=== PATIENT | female | born 1970 | race Two or more races ===

== ENCOUNTER → 2024-12-12 | Outpatient (CLI) | payer BC, SELFPAY ==
[2024-12-12 16:52] LABS: Calcium, Ionized 4.8 mg/dL (4.6-5.6)
[2024-12-12 16:55] LABS: Glucose Estimated Average 97 mg/dL (80-131)
[2024-12-12 17:03] LABS: Parathyroid Hormone Intact 41.6 pg/ml (18.5-88.0)
[2024-12-12 17:08] LABS: Albumin, Serum 4.5 gm/dL (3.5-5.0); Anion Gap 5 (7-16); BUN/Creatinine Ratio 25 Ratio (12-20); Blood Urea Nitrogen 15 mg/dL (9-23); Calcium 9.4 mg/dL (8.3-10.6); Calcium (Corrected) 9.4 mg/dL (8.5-10.1); Carbon Dioxide 29.6 mMol/L (20.0-31.0); Cardiac Risk Estimate 2.9 RATIO (3.7-5.6); Chloride 106 mMol/L (98-107); Cholesterol 249 mg/dL (132-200); Creatinine (Component) 0.6 mg/dL (0.6-1.3); Free T3 3.3 pg/mL (2.3-4.2); Glucose 74 mg/dL (74-106); HDL Cholesterol 85 mg/dL (40-60); LDL Cholesterol,Calculated 144 mg/dL (0-130); Osmolality,Calculated 281 (275-295); Phosphorous 3.6 mg/dL (2.4-5.1); Potassium 4.3 mMol/L (3.4-5.1); Sodium 141 mMol/L (136-145); Triglycerides 101 mg/dL (30-150); eGFR > 60 See Note
[2024-12-22 07:06] LABS: Vitamin D, 25-OH, D2 <4 ng/mL; Vitamin D, 25-OH, D3 51 ng/mL; Vitamin D, 25-OH, Total 51 ng/mL (30-100)
== END | disposition home or self-care (01) ==
LOC: COPL 15:39
PROVIDERS: PCP Specialist; Referring Provider Specialist; Visit Provider Specialist
DX: R63.5 Abnormal weight gain (principal); E78.2 Mixed hyperlipidemia; M81.0 Age-related osteoporosis without current pathological fracture
CPT/HCPCS: 36415; 80061; 80069; 82306; 82330; 83036; 83970; 84439; 84443; 84481

== ENCOUNTER → 2025-01-14 | Outpatient (CLI) | payer BC, SELFPAY ==
[2025-01-14 09:34] LABS: HCG Qualitative,Urine Negative
--- NOTE | 2025-01-14 10:30 | XR_ITS ---
Examination: CT soft tissue neck, with intravenous contrast. 2-D coronal reconstructions. 2-D sagittal reconstructions. Date and time of exam :January 14, 2025 1029 hrs. Indications: Palpable lump left side of the neck 6 months, history thyroid cyst, cystic mass of February 2023 22 x [address] soft tissue neck 06/13/2023. CTDI: vol (mGy):9.70 DLP: (mGycm):272 Technique: 1.25 mm axial sections of the neck of the obtained. Coronal and sagittal reconstructions have been obtained. Intravenous contrast administered 50 cc Isovue-[id number]. Low dose protocols were performed. One or more of the following dose reduction techniques were used; automated exposure control, adjustment of the mA and/or KV according to patient size, use of iterative reconstruction technique. Findings: Optic globes exhibit symmetry Maxillary antra are clear Symmetrical nasopharynx oropharynx Nonspecific carotid triangle posterior cervical submental lymph nodes The larynx appears normal The submental cystic mass is no longer identified Normal epiglottis Impression: The submental cystic mass is no longer identified
== END | disposition home or self-care (01) ==
PROVIDERS: PCP Specialist; Referring Provider Specialist; Visit Provider Specialist
DX: R22.1 Localized swelling, mass and lump, neck (principal); Z32.00 Encounter for pregnancy test, result unknown
CPT/HCPCS: 70491; 81025; A4649; Q9967

== ENCOUNTER → 2025-02-12 | Outpatient (CLI) | payer BC, SELFPAY ==
--- NOTE | 2025-02-12 09:47 | XR_ITS ---
Examination: Knee, right , 3 views Technique: Knee AP, lateral, oblique 3 views Date and time of exam: February 12, 2025 1002 hours INDICATIONS: Right knee pain beginning 3 weeks ago. FINDINGS: Moderate osteopenia. Mild narrowing medial joint space No fracture or dislocation IMPRESSION: Mild narrowing medial joint space
[2025-02-12 12:15] LABS: D-Dimer < 250 ng/mL (<600)
== END | disposition home or self-care (01) ==
LOC: CDIM 09:36 → COPL 10:19
PROVIDERS: PCP Specialist; Referring Provider Specialist; Visit Provider Radiology Diagnostic Radiology
DX: M25.861 Other specified joint disorders, right knee (principal); M25.561 Pain in right knee
CPT/HCPCS: 36415; 73562; 85379

== ENCOUNTER → 2025-05-15 | Outpatient (CLI) | payer BC, SELFPAY ==
--- NOTE | 2025-05-15 14:30 | XR_ITS ---
Examination: Abdomen sonogram, complete Date and time of exam: May 25, 2025 1438 hours INDICATIONS: Recurrent left lower abdominal pain beginning 6 months ago. Technique: Multiple real-time grayscale transabdominal sonographic images of the abdomen have been obtained. Findings: Multiple gallstones Normal gallbladder wall Normal common bile duct 0.4 cm Pancreatic head 2.0 cm Aorta not enlarged Liver 14.9 cm fatty infiltration liver cysts, the largest 3.8 cm in the right lobe Normal hepatopedal portal venous flow Patent IVC Right kidney 12.0 cm cortex 1 9 cm Left kidney 11.3 cm cortex 1.3 cm No hydronephrosis Spleen 10.6 cm IMPRESSION: Cholelithiasis, negative for cholecystitis Fatty infiltration throughout the liver
[2025-05-15 16:29] LABS: Basophils # (Auto) 0.0 Thou/mm3 (0.0-0.2); Basophils % (Auto) 1 % (0-2.5); Eosinophils # (Auto) 0.1 Thou/mm3 (0.0-0.5); Eosinophils % (Auto) 1 % (0-10); Hematocrit 42.2 % (36.0-46.0); Hemoglobin 13.5 g/dL (12.0-16.0); Immature Granulocytes Auto 0.03 Thou/mm3 (0.00-0.00); Lymphocytes # (Auto) 1.8 Thou/mm3 (1.0-4.8); Lymphocytes % (Auto) 28 % (10-50); Mean Corpuscular HGB Conc 32.0 g/dl (31.0-37.0); Mean Corpuscular Hemoglobin 30.1 pg (25.0-35.0); Mean Corpuscular Volume 94 fL (80-100); Monocytes # (Auto) 0.4 Thou/mm3 (0.0-0.8); Monocytes % (Auto) 6 % (0-12); Neutrophils # (Auto) 4.3 Thou/mm3 (1.8-7.7); Neutrophils % (Auto) 64 % (37-80); Nucleated Red Blood Cell # 0.00 Thou/mm3 (0.00-0.00); Nucleated Red Blood Cell % 0 /100 WBC (0); Platelet Count 293 Thou/mm3 (140-440); RDW Standard Deviation 45.6 fL (36.4-46.3); Red Blood Count 4.49 Miln/mm3 (4.00-5.20); White Blood Count 6.6 Thou/mm3 (3.6-11.0)
[2025-05-15 16:38] LABS: Alanine Aminotransferase 18 U/L (10-49); Albumin, Serum 4.7 gm/dL (3.5-5.0); Albumin/Globulin Ratio 2.0 (1.2-2.2); Alkaline Phosphatase 74 U/L (46-116); Anion Gap 9 (7-16); Aspartate Amino Transferase 19 U/L (0-34); BUN/Creatinine Ratio 19 Ratio (12-20); Bilirubin,Total 0.3 mg/dL (0.3-1.2); Blood Urea Nitrogen 13 mg/dL (9-23); C-Reactive Protein 0.6 mg/dL (0.0-0.9); Calcium 9.6 mg/dL (8.3-10.6); Calcium (Corrected) 9.6 mg/dL (8.5-10.1); Carbon Dioxide 29.3 mMol/L (20.0-31.0); Chloride 105 mMol/L (98-107); Creatinine (Component) 0.7 mg/dL (0.6-1.3); Free T3 3.3 pg/mL (2.3-4.2); Free T4 (Free Thyroxine) 1.23 ng/dL (0.89-1.76); Globulin 2.3 gm/dL (2.3-3.5); Glucose 93 mg/dL (74-106); Lipase 56 U/L (12-53); Osmolality,Calculated 285 (275-295); Potassium 4.6 mMol/L (3.4-5.1); Sodium 143 mMol/L (136-145); Thyroid Stimulating Hormone 1.61 uIU/mL (0.55-4.78); Total Protein 7.0 gm/dL (5.7-8.2); eGFR > 60 See Note
[2025-05-15 17:11] LABS: Sed Rate (ESR) 10 mm/hr (0-30)
== END | disposition home or self-care (01) ==
LOC: CDIM 14:16 → COPL 15:01
PROVIDERS: PCP Specialist; Referring Provider Specialist; Visit Provider Radiology Diagnostic Radiology
DX: K80.20 Calculus of gallbladder without cholecystitis without obstruction (principal); K76.0 Fatty (change of) liver, not elsewhere classified; R10.11 Right upper quadrant pain
CPT/HCPCS: 36415; 76700; 80053; 83690; 84439; 84443; 84481; 85025; 85652; 86140

== ENCOUNTER → 2025-06-19 | Outpatient (CLI) | payer BC, SELFPAY ==
--- NOTE | 2025-06-19 16:03 | XR_ITS ---
Examination: Ultrasound soft tissue neck TECHNIQUE: Grayscale sonographic images soft tissue neck Date and time: June 19, 2025, 1609 hours INDICATIONS: Palpable lump in the left side of the neck beginning one year ago, history thyroglossal duct cyst removed August 2023 FINDINGS: 1.4 x 0.5 x 0.9 cm lymph node in the upper left neck 1.6 x 0.4 x 1.0 cm lymph node in the mid left neck IMPRESSION: Lymphadenopathy as above, nonspecific, recommend 6 month ultrasound soft tissue neck follow-up
== END | disposition home or self-care (01) ==
LOC: CDIM 15:56
PROVIDERS: Referring Provider Specialist; Visit Provider Specialist
DX: R59.1 Generalized enlarged lymph nodes (principal)
CPT/HCPCS: 76536

== ENCOUNTER → 2025-07-03 | Outpatient (CLI) | payer BC, SELFPAY ==
[2025-07-03 11:36] LABS: Alanine Aminotransferase 13 U/L (10-49); Albumin, Serum 4.7 gm/dL (3.5-5.0); Alkaline Phosphatase 75 U/L (46-116); Amylase 62 U/L (30-118); Aspartate Amino Transferase 15 U/L (0-34); Bilirubin,Direct 0.1 mg/dL (0.0-0.3); Bilirubin,Total 0.5 mg/dL (0.3-1.2); Lipase 41 U/L (12-53); Total Protein 7.0 gm/dL (5.7-8.2)
== END | disposition home or self-care (01) ==
LOC: COPL 10:17
PROVIDERS: PCP Specialist; Referring Provider Specialist; Visit Provider Specialist
DX: R10.12 Left upper quadrant pain (principal)
CPT/HCPCS: 36415; 80076; 82150; 83690